=== PATIENT | female | born 1995 | race Caucasian/White ===

== ENCOUNTER 2021-05-10 17:40 | Emergency (ER) | payer BC, SELFPAY ==
[2021-05-10 19:10] VITALS: BP 138/91; PULSE 98; RESP 18; TEMP 36.7; O2SAT 97
--- NOTE | 2021-05-10 19:36 | HMH.EDUTC ---
[facility] Disposition Clinical Impression: Asthma exacerbation, mild URI (upper respiratory infection) Qualifiers: URI type: unspecified URI Qualified Code(s): J06.9 - Acute upper respiratory infection, unspecified Disposition: Home, Self-Care Condition on Discharge: Good Instructions: Sinusitis, DI for Asthma -- Adult, DI for Sinusitis, Budesonide, Budesonide Oral Inhalation Additional Instructions: *Monitor Temp, Over the counter Motrin or Tylenol as directed/as needed Tylenol every 4 hours and Motrin every 6 hours (as long as your family doctor has told you that you can take it) for fever or pa-in. and straight to ER if unable to lower temp less than 101.0 after medication given *Warm salt water gargles may help to soothe the throat *Throat Lozenges *Warm fluids like tea with honey may help to soothe the throat *Sleep elevated *Humidifier/Vaporizer Take medication as prescribed Follow up with OBGYN and Family Doctor if no improvement or any worsening of symptoms Follow up IMMEDIATELY for new or worsening symptoms or no Noticeable improvement over the next 48-72 hours. 911 for difficulty breathing or swallowing You were tested for today for COVID19 your test result should be back in the next 24-48 hours, [facility] to see if your test results are back in the next 48 it may say detected that means your result is positive.You was given handout instructions on how log on and see your results. If you do not have internet access you may call the [facility] for your results [phone] You was given a handout with instructions for Self Quarantine and Self isolation for while you wait on test results and what to do if they are positive If you are positive the Health Dept will be contacting you also Make sure to take your Vitamins Vit. C Vit D and Zinc if you can take them Prescriptions: Budesonide 0.5 mg IH BID PRN #20 each PRN Reason: Shortness Of Breath Transmission Status: Received by [facility] Azithromycin [Z-Rai 250mg Tab] 250 mg PO DIRECTED #6 tab Transmission Status: Received by [facility] Referrals: Jenny Randle APRN [Primary Care Provider] - As needed Forms: Work/School Release Time of Disposition: 19:53 Medical Decision Making - Moiz Inquiry Pt receiving controlled substance: No Moiz was queried for this patient: No Vital Signs: 05/10/21 19:10 05/10/21 19:53 Temperature 98.1 F 98.1 F Temperature Source Oral Pulse Rate 98 H Pulse Rate [Right Brachial] 98 H Respiratory Rate 18 18 Blood Pressure 138/91 H Blood Pressure [Right Arm] 138/91 H Blood Pressure Mean [Right Arm] 106 Blood Pressure Source [Right Arm] Automatic Cuff Blood Pressure Position [Right Arm] Sitting 02 Sat by Pulse Oximetry 97 Oxygen Delivery Method Room Air Orders (Tests/Meds): ORDERS Category Date Time Status Covid-19 Nasal PCR ([facility]) Routine Lab 05/10/21 20:01 Ordered Medical Decision Narrative: Medications azithromycin and budesonide inhaled neb discussed with pharmacy about being baby safe due to patient 10wks ob and medication was dosed per pharmacy [facility] HPI - General Stated complaint: asthma symptoms Time Seen by Provider: 05/10/21 19:36 Mode of Arrival: Ambulatory Source of Information: Patient, Spouse Limitations: No Limitations Description of Symptoms (Recalled from Triage Doc. by RN): PATIENT C/O RECENT CONGESTION AND SOA AT NIGHT. HX OF ASTHMA. STATES SHE IS 10 WEEKS HEENT Symptoms (Recalled from RN notes): No Resp Symptoms (Recalled from RN notes): Yes Skin Symptoms (Recalled from RN notes): No MS Symptoms (Recalled from RN notes): No Functional Status (Recalled from RN notes): WNL - History of Present Illness Provider Complaint: Patient states that she is 10wks OB with history of Asthma States that she thinks she may have a sinus infection that is causing her Asthma to flare up State that she has been using her nebulizer and inhaler but still
[2021-05-10 19:53] VITALS: BP 138/91; PULSE 98; RESP 18; TEMP 36.7; O2SAT 97
== END 2021-05-10 20:10 | disposition home or self-care (01) ==
PROVIDERS: Emergency Provider Nurse Practitioner; PCP Nurse Practitioner
DX: J45.901 Unspecified asthma with (acute) exacerbation (principal); Z3A.10 10 weeks gestation of pregnancy; Z88.0 Allergy status to penicillin
CPT/HCPCS: 99202; G0463; U0003

== ENCOUNTER → 2021-09-16 13:20 | Outpatient (CLI) | payer BC, SELFPAY | PROVIDERS: Visit Provider Nurse Practitioner | DX: Z20.822 Contact with and (suspected) exposure to COVID-19 (principal) | CPT/HCPCS: C9803; U0003; U0005 ==

== ENCOUNTER → 2022-08-02 14:17 | Outpatient (CLI) | payer BC, SELFPAY ==
[2022-08-02 18:14] LABS: Bordetella Pertussis Not Detected (NotDetected); Chlamydophila Pneumoniae, PCR Not Detected (NotDetected); Coronavirus 229E Not Detected (NotDetected); Coronavirus NL63 Not Detected (NotDetected); Coronavirus OC43 Not Detected (NotDetected); Coronovirus HKU1,PCR Not Detected (NotDetected); Human Metapneumovirus Not Detected (NotDetected); Influenza A, PCR Not Detected (NotDetected); Influenza AH1, 2009 Not Detected (NotDetected); Influenza AH1, PCR Not Detected (NotDetected); Influenza AH3,PCR Not Detected (NotDetected); Influenza B, PCR Not Detected (NotDetected); Mycoplasma Pneumoniae, PCR Not Detected (NotDetected); Parainfluenza 1, PCR Not Detected (NotDetected); Parainfluenza 2, PCR Not Detected (NotDetected); Parainfluenza 3, PCR Not Detected (NotDetected); Parainfluenza 4, PCR Not Detected (NotDetected); Respiratory Syncytial Virus Not Detected (NotDetected); Rhinovirus/Enterovirus Not Detected (NotDetected)
[2022-08-03 01:03] LABS: Adenovirus,PCR Detected (NotDetected); Coronavirus 19, PCR Detected (NotDetected)
== END ==
PROVIDERS: PCP Nurse Practitioner; Visit Provider Nurse Practitioner
DX: U07.1 COVID-19 (principal); J06.9 Acute upper respiratory infection, unspecified; B34.0 Adenovirus infection, unspecified
CPT/HCPCS: 87581; 87632; 87798; C9803; U0003; U0005

== ENCOUNTER → 2022-09-29 12:26 | Outpatient (CLI) | payer BC, SELFPAY ==
[2022-09-29 18:21] LABS: Adenovirus,PCR Not Detected (NotDetected); Bordetella Pertussis Not Detected (NotDetected); Chlamydophila Pneumoniae, PCR Not Detected (NotDetected); Coronavirus 19, PCR Not Detected (NotDetected); Coronavirus 229E Not Detected (NotDetected); Coronavirus NL63 Not Detected (NotDetected); Coronavirus OC43 Not Detected (NotDetected); Coronovirus HKU1,PCR Not Detected (NotDetected); Human Metapneumovirus Not Detected (NotDetected); Influenza A, PCR Not Detected (NotDetected); Influenza AH1, 2009 Not Detected (NotDetected); Influenza AH1, PCR Not Detected (NotDetected); Influenza AH3,PCR Not Detected (NotDetected); Influenza B, PCR Not Detected (NotDetected); Mycoplasma Pneumoniae, PCR Not Detected (NotDetected); Parainfluenza 1, PCR Not Detected (NotDetected); Parainfluenza 2, PCR Not Detected (NotDetected); Parainfluenza 3, PCR Not Detected (NotDetected); Parainfluenza 4, PCR Not Detected (NotDetected); Respiratory Syncytial Virus Not Detected (NotDetected); Rhinovirus/Enterovirus Not Detected (NotDetected)
== END ==
PROVIDERS: PCP Nurse Practitioner; Visit Provider Nurse Practitioner
DX: J06.9 Acute upper respiratory infection, unspecified (principal); J45.901 Unspecified asthma with (acute) exacerbation
CPT/HCPCS: 87581; 87632; 87798; C9803; U0003; U0005

== ENCOUNTER → 2022-11-24 11:00 | Outpatient (CLI) | payer BC, SELFPAY ==
[2022-11-24 18:30] LABS: Adenovirus,PCR Not Detected (NotDetected); Bordetella Pertussis Not Detected (NotDetected); Chlamydophila Pneumoniae, PCR Not Detected (NotDetected); Coronavirus 19, PCR Not Detected (NotDetected); Coronavirus 229E Not Detected (NotDetected); Coronavirus NL63 Not Detected (NotDetected); Coronavirus OC43 Not Detected (NotDetected); Coronovirus HKU1,PCR Not Detected (NotDetected); Human Metapneumovirus Not Detected (NotDetected); Influenza A, PCR Not Detected (NotDetected); Influenza AH1, 2009 Not Detected (NotDetected); Influenza AH1, PCR Not Detected (NotDetected); Influenza AH3,PCR Not Detected (NotDetected); Influenza B, PCR Not Detected (NotDetected); Mycoplasma Pneumoniae, PCR Not Detected (NotDetected); Parainfluenza 1, PCR Not Detected (NotDetected); Parainfluenza 2, PCR Not Detected (NotDetected); Parainfluenza 3, PCR Not Detected (NotDetected); Parainfluenza 4, PCR Not Detected (NotDetected); Respiratory Syncytial Virus Not Detected (NotDetected); Rhinovirus/Enterovirus Not Detected (NotDetected)
[2022-11-24 19:06] LABS: Basophils % 0.3 % (0.1-2.0); Eosinophils # 0.3 K/mm3 (0.0-0.4); Eosinophils % 3.4 % (0.1-12.0); Hematocrit 41.2 % (37.0-47.0); Hemoglobin 13.2 g/dL (12.2-16.2); Lymphocytes # 1.9 K/mm3 (0.7-4.5); Lymphocytes % 19.2 % (10-50); Mean Corpuscular HGB Conc 31.9 g/dL (31.8-35.4); Mean Corpuscular Hemoglobin 27.5 pg (27.0-31.2); Mean Corpuscular Volume 86.2 fl (81-99); Mean Platelet Volume 8.8 fl (7.4-10.4); Monocytes # 0.4 K/mm3 (0.1-1.0); Monocytes % 3.9 % (1.7-9.3); Neutrophils # 7.2 K/mm3 (1.8-7.8); Neutrophils % 73.2 % (37.0-80.0); Platelet Count 238 K/mm3 (142-424); Red Blood Count 4.78 M/mm3 (4.20-5.40); White Blood Count 9.9 K/mm3 (4.8-10.8)
== END ==
PROVIDERS: PCP Nurse Practitioner; Visit Provider Nurse Practitioner
DX: J06.9 Acute upper respiratory infection, unspecified (principal); J45.901 Unspecified asthma with (acute) exacerbation
CPT/HCPCS: 85025; 87581; 87632; 87798; C9803; U0003; U0005

== ENCOUNTER → 2023-01-25 23:30 | Outpatient (CLI) | payer BC, SELFPAY ==
[2023-01-25 19:47] LABS: Basophils % 0.4 % (0.1-2.0); Eosinophils # 0.6 K/mm3 (0.0-0.4); Hematocrit 40.3 % (37.0-47.0); Hemoglobin 12.9 g/dL (12.2-16.2); Lymphocytes # 1.2 K/mm3 (0.7-4.5); Lymphocytes % 23.6 % (10-50); Mean Corpuscular Volume 87.5 fl (81-99); Mean Platelet Volume 9.5 fl (7.4-10.4); Monocytes # 0.4 K/mm3 (0.1-1.0); Monocytes % 6.7 % (1.7-9.3); Neutrophils % 58.3 % (37.0-80.0); Platelet Count 202 K/mm3 (142-424); Red Cell Distribution Width 13.8 % (11.5-17.5); White Blood Count 5.2 K/mm3 (4.8-10.8)
[2023-01-25 20:11] LABS: Alanine Aminotransferase 14 U/L (12-78); Albumin Level 4.1 g/dl (3.5-5.0); Albumin/Globulin Ratio 1.5 (1.1-1.8); Alkaline Phosphatase 152 U/L (38-126); Anion Gap 17.3 mEq/L (5-15); Aspartate Amino Transferase 22 U/L (14-36); Bilirubin,Total 0.4 mg/dl (0.2-1.3); Blood Urea Nitrogen 9 mg/dl (7-17); Calcium 8.7 mg/dl (8.4-10.2); Carbon Dioxide 26 mmol/L (22.0-30.0); Chloride 100 mmol/L (98-107); Chol/HDL Ratio 4.4 (1-3.5); Cholesterol 184 mg/dl (140-200); Estimated Glomerular Filt Rate 118 ml/min (>60); GFR (African American) 143 ML/MIN (>60); Globulin 2.7 g/dL (1.3-3.2); Glucose 94 mg/dl (74-100); HDL Cholesterol 42 mg/dl (40-60); Potassium 4.3 mmoL/L (3.5-5.1); Sodium 139 mmol/L (136-145); Total Protein,Serum 6.8 g/dl (6.3-8.2); Triglycerides 176 mg/dl (30-150); VLDL Cholesterol 35 mg/dL (0-40)
[2023-01-25 20:21] LABS: Direct LDL Cholesterol 111.69 mg/dL (100-129)
[2023-01-25 20:27] LABS: 25-OH Vitamin D, Total 26.1 ng/mL (30-100)
[2023-01-25 20:42] LABS: Thyroid Stimulating Hormone 1.03 uIU/mL (0.465-4.68)
[2023-01-25 21:01] LABS: Vitamin B12 208 pg/mL (239-931)
[2023-01-25 21:34] LABS: Hemoglobin A1C 4.9 % (4.0-6.0)
== END ==
LOC: LAB.DROPOF 23:30
PROVIDERS: PCP Nurse Practitioner; Visit Provider Nurse Practitioner
DX: J06.9 Acute upper respiratory infection, unspecified; J45.901 Unspecified asthma with (acute) exacerbation; Z13.1 Encounter for screening for diabetes mellitus; Z13.220 Encounter for screening for lipoid disorders; Z13.29 Encounter for screening for other suspected endocrine disorder; Z79.899 Other long term (current) drug therapy; Z00.00 Encounter for general adult medical examination without abnormal findings; E55.9 Vitamin D deficiency, unspecified; E53.8 Deficiency of other specified B group vitamins
CPT/HCPCS: 80053; 80061; 82306; 82607; 83036; 84443; 85025; 87635; C9803; U0003; U0005

== ENCOUNTER 2023-10-24 19:55 | Outpatient (CLI) | payer BC, SELFPAY ==
[2023-10-24 18:12] LABS: Adenovirus,PCR Not Detected (NotDetected); Coronavirus 19, PCR Not Detected (NotDetected); Coronavirus 229E Not Detected (NotDetected); Coronavirus NL63 Not Detected (NotDetected); Coronavirus OC43 Not Detected (NotDetected); Coronovirus HKU1,PCR Not Detected (NotDetected); Human Metapneumovirus Not Detected (NotDetected); Influenza A, PCR Not Detected (NotDetected); Influenza AH1, 2009 Not Detected (NotDetected); Influenza AH1, PCR Not Detected (NotDetected); Influenza AH3,PCR Not Detected (NotDetected); Influenza B, PCR Not Detected (NotDetected); Parainfluenza 1, PCR Not Detected (NotDetected); Parainfluenza 2, PCR Not Detected (NotDetected); Parainfluenza 3, PCR Not Detected (NotDetected); Parainfluenza 4, PCR Not Detected (NotDetected); Respiratory Syncytial Virus Not Detected (NotDetected); Rhinovirus/Enterovirus Not Detected (NotDetected)
== END 2023-10-24 23:59 ==
LOC: LAB.DROPOF 19:56
PROVIDERS: PCP Nurse Practitioner; Visit Provider Nurse Practitioner
DX: J45.901 Unspecified asthma with (acute) exacerbation (principal); R09.81 Nasal congestion; R09.89 Other specified symptoms and signs involving the circulatory and respiratory systems; J02.9 Acute pharyngitis, unspecified; R05.8 Other specified cough
CPT/HCPCS: 87632; 87635

== ENCOUNTER 2023-10-27 10:10 | Outpatient (CLI) | payer BC, SELFPAY ==
[2023-10-27 10:25] LABS: Basophils # 0.1 K/mm3 (0-0.2); Basophils % 0.6 % (0.1-2.0); Eosinophils # 0.1 K/mm3 (0.0-0.4); Eosinophils % 0.5 % (0.1-12.0); Hematocrit 39.2 % (37.0-47.0); Hemoglobin 13.2 g/dL (12.2-16.2); Lymphocytes # 2.4 K/mm3 (0.7-4.5); Mean Corpuscular HGB Conc 33.8 g/dL (31.8-35.4); Mean Corpuscular Hemoglobin 28.4 pg (27.0-31.2); Mean Corpuscular Volume 83.9 fl (81-99); Mean Platelet Volume 8.2 fl (7.4-10.4); Monocytes # 0.4 K/mm3 (0.1-1.0); Monocytes % 4.5 % (1.7-9.3); Neutrophils % 70.5 % (37.0-80.0); Platelet Count 238 K/mm3 (142-424); Red Blood Count 4.67 M/mm3 (4.20-5.40); Red Cell Distribution Width 14.1 % (11.5-17.5); White Blood Count 9.9 K/mm3 (4.8-10.8)
[2023-10-27 10:45] LABS: Hemoglobin A1C 5.1 % (4.0-6.0)
[2023-10-27 11:01] LABS: Alanine Aminotransferase 20 U/L (12-78); Albumin Level 4.1 g/dl (3.5-5.0); Albumin/Globulin Ratio 1.4 (1.1-1.8); Alkaline Phosphatase 125 U/L (38-126); Aspartate Amino Transferase 19 U/L (14-36); Bilirubin,Total 0.3 mg/dl (0.2-1.3); Blood Urea Nitrogen 11 mg/dl (7-17); Carbon Dioxide 31 mmol/L (22.0-30.0); Chloride 105 mmol/L (98-107); Chol/HDL Ratio 4.9 (1-3.5); Cholesterol 225 mg/dl (140-200); Estimated Glomerular Filt Rate 117 ml/min (>60); GFR (African American) 142 ML/MIN (>60); Globulin 2.9 g/dL (1.3-3.2); Glucose 96 mg/dl (74-100); HDL Cholesterol 46 mg/dl (40-60); Sodium 142 mmol/L (136-145); Triglycerides 207 mg/dl (30-150); VLDL Cholesterol 41 mg/dL (0-40)
[2023-10-27 11:12] LABS: Direct LDL Cholesterol 126.14 mg/dL (100-129)
[2023-10-27 11:17] LABS: 25-OH Vitamin D, Total 14.4 ng/mL (30-100)
[2023-10-27 11:31] LABS: Thyroid Stimulating Hormone 0.74 uIU/mL (0.465-4.68)
[2023-10-27 11:51] LABS: Vitamin B12 326 pg/mL (239-931)
== END 2023-10-27 23:59 ==
PROVIDERS: PCP Nurse Practitioner; Visit Provider Nurse Practitioner
DX: E55.9 Vitamin D deficiency, unspecified (principal); E66.9 Obesity, unspecified; Z68.35 Body mass index [BMI] 35.0-35.9, adult; Z79.899 Other long term (current) drug therapy
CPT/HCPCS: 36415; 80053; 80061; 82306; 82607; 83036; 84443; 85025

== ENCOUNTER 2024-02-23 09:59 | Emergency (ER) | payer BC, SELFPAY ==
[2024-02-23 10:00] VITALS: BP 166/89; PULSE 99; RESP 18; TEMP 36.8; O2SAT 100; BMI 35.9
--- NOTE | 2024-02-23 10:01 | ED_ITS ---
Discharge Plan Disposition Patient Disposition: Home, Self-Care Condition: Good Prescriptions Prescriptions: New amitriptyline 25 mg tablet 25 mg PO HS Qty: 30 0RF Ubrelvy 100 mg tablet 100 mg PO ONCE PRN (Reason: headache) Qty: 16 0RF No Action Dupixent Syringe 300 mg/2 mL syringe 300 mg SQ Q2W fluticasone propionate 50 mcg/actuation spray,suspension 1 spray intranasal DAILY Qty: 16 2RF Rx Instructions: administer into each nostril fluticasone furoate-vilanterol [Breo Ellipta] 100-25 mcg/dose blister with device 1 inh INHALATION DAILY Qty: 60 5RF Zepbound 2.5 mg/0.5 mL pen injector 2.5 mg SQ WEEKLY 28 Days Qty: 2 0RF cefdinir 300 mg capsule 300 mg PO BID Qty: 20 0RF prednisone 20 mg tablet 20 mg PO .COMPLEX Qty: 15 0RF Rx Instructions: 20 mg orally BID x 5 days then daily x 5 days cetirizine 10 mg tablet 10 mg PO DAILY Qty: 90 1RF montelukast 10 mg tablet 10 mg PO DAILY Qty: 90 1RF cholecalciferol (vitamin D3) 125 mcg (5,000 unit) tablet 125 mcg PO DAILY Qty: 30 5RF cyanocobalamin (vitamin B-12) 1,000 mcg tablet 1,000 mcg PO DAILY Qty: 30 5RF Zafemy 150-35 mcg/24 hr patch weekly See Rx Instructions .ROUTE .COMPLEX Qty: 3 2RF Dose Instruction: Apply 1 Patch transdermally every 7 days. Apply once weekly for 3 weeks of a 4 week cycle Rx Instructions: Apply 1 Patch transdermally every 7 days. Apply once weekly for 3 weeks of a 4 week cycle albuterol sulfate 2.5 mg /3 mL (0.083 %) solution for nebulization 2.5 mg inhalation Q6H Qty: 360 5RF cholecalciferol (vitamin D3) 1,250 mcg (50,000 unit) capsule 1,250 mcg PO WEEKLY Qty: 8 0RF omeprazole 40 mg capsule,delayed release(DR/EC) 40 mg PO DAILY Qty: 30 2RF fluconazole 150 mg tablet 150 mg PO WEEKLY Qty: 2 1RF Referrals Follow up/Referrals: Jenny Randle APRN [Primary Care Provider] - See instructions Activity Restrictions/Add. Instructions Additional Instructions/Restrictions: Follow up with Jenny to review labs Restart B12 Trial amitriptyline at night for headache prevention and Ubrelvy as needed to get rid of headaches once they are present Clinical Impressions Clinical Impression: Chronic headache Instructions Patient Instructions: DI for Headache Discharge ED Provider: Cecilia Stone [facility] HPI General Stated complaint: frequent headaches Time Seen by Provider: 02/23/24 10:54 History of Present Illness Provider Complaint: Frequent headaches. Saw PCP approximately one month ago. She was given antibiotics, steroids. No real improvement. Hurts behind eyes, across bridge of nose. Onset (ago): month(s) (1) Location: head Consistency: constant Relieving factors: none Exacerbating factors: none Associated symptoms: headaches Treatments prior to arrival: other (antibiotics steroiids) Related Data Home Medications Medication Instructions Recorded Confirmed dupilumab 300 mg/2 mL subcutaneous 300 mg SQ Q2W 08/02/22 01/24/24 syringe (Dupixent) Previous Rx's Medication Instructions Recorded fluticasone furoate 100 1 inh inhalation DAILY #60 ea 11/24/22 mcg-vilanterol 25 mcg/dose inhalation powder (Breo Ellipta) fluticasone propionate 50 1 spray intranasal DAILY #16 grams 11/24/22 mcg/actuation nasal spray,suspension cholecalciferol (vitamin D3) 125 125 mcg PO DAILY #30 tabs 01/26/23 mcg (5,000 unit) tablet cyanocobalamin (vitamin B-12) 1,000 mcg PO DAILY #30 tabs 01/26/23 1,000 mcg tablet norelgestromin 150 mcg-e.estradiol See Rx Instructions .Route 01/26/23 35 mcg/24 hr weekly transderm .COMPLEX #3 patches patch (Zafemy) albuterol sulfate 2.5 mg/3 mL 2.5 mg (3 mL) inhalation Q6H #360 09/28/23 (0.083 %) solution for nebulization mL tirzepatide (weight loss) 2.5 2.5 mg (0.5 mL) SQ WEEKLY 4 weeks 10/24/23 mg/0.5 mL subcutaneous pen #2 mL injector (Zepbound) cholecalciferol (vitamin D3) 1,250 1,250 mcg PO WEEKLY #8 caps 11/03/23 mcg (50,000 unit) capsule omeprazole 40 mg capsule,delayed 40 mg PO DAILY #30 caps 11/03/23 release fluconazole 150 mg tablet 150 mg PO WEEKLY #2 tabs 11/20/23 cefdinir 300 mg capsule 300 mg PO BID #20 caps 01/24/24 cetirizine 10 mg tablet 10 mg PO DAILY #90 tabs 01/24/24 montelukast 10 mg tablet 10 mg PO DAILY #90 tabs 01/24/24 prednisone 20 mg tablet 20 mg PO .COMPLEX #15 tabs 01/24/24 amitriptyline 25 mg tablet 25 mg PO HS #30 tabs 02/23/24 ubrogepant 100 mg tablet (Ubrelvy) 100 mg PO ONCE PRN headache #16 02/23/24 tabs Allergies Allergy/AdvReac Type Severity Reaction Status Date / Time Penicillins Allergy Verified 02/23/24 10:39 [facility] Disclaimer: The information contained in this section may have been updated after the patient was seen, as this information can be updated by other users. Medical History (Updated 02/23/24 @ 11:01 by TIFFANIE Cadena) Allergic rhinitis Vitamin B12 deficiency Vitamin D deficiency GERD (gastroesophageal reflux disease) Hyperlipidemia Obesity Asthma exacerbation, mild Family History Other Cancer Diabetes Social History Smoking Status: Never smoker alcohol intake: former substance use type: denies use current occupational status: employed Travel in the last 8 weeks: None household members: family housing: house ROS Obtained: Yes All systems reviewed & no additional complaints except as documented Constitutional Constitutional: Reports headache(s) ENT Ears, Nose, Mouth, and Throat: Reports headache(s) Neurologic Neurologic: Reports headache(s) Physical Exam General General appearance: alert and in no apparent distress Head Head exam: atraumatic, normocephalic and normal inspection Eye Eye exam: Present normal appearance, PERRL and EOMI ENT ENT exam: Present normal exam, normal oropharynx, mucous membranes moist, TM's normal bilaterally and normal external ear exam Respiratory Respiratory exam: Present normal lung sounds bilaterally; Absent respiratory distress Cardiovascular Cardiovascular exam: Present regular rate and normal rhythm; Absent JVD Extremities Exam Extremities exam: Present normal inspection, full ROM and normal capillary refill; Absent calf tenderness Neurological Exam Neurological exam: Present alert and oriented X3 Psychiatric Psychiatric exam: Present normal affect and normal mood Skin Skin exam: Present warm, dry, intact and normal color Lymphatic Lymphatic Findings: no adenopathy Medical Decision Making Moiz Inquiry Pt receiving controlled substance: No Lab Data Lab results reviewed: Yes I reviewed the patient's lab results.
--- NOTE | 2024-02-23 10:49 | PC.NURSE ---
Sent blood up at 10:49
[2024-02-23 11:09] LABS: Basophils % 0.8 % (0.1-2.0); Eosinophils # 0.1 K/mm3 (0.0-0.4); Eosinophils % 1.8 % (0.1-12.0); Hematocrit 40.1 % (37.0-47.0); Hemoglobin 12.7 g/dL (12.2-16.2); Lymphocytes # 1.5 K/mm3 (0.7-4.5); Mean Corpuscular HGB Conc 31.6 g/dL (31.8-35.4); Mean Corpuscular Hemoglobin 27.4 pg (27.0-31.2); Mean Corpuscular Volume 86.5 fl (81-99); Mean Platelet Volume 8.3 fl (7.4-10.4); Monocytes # 0.2 K/mm3 (0.1-1.0); Monocytes % 4.9 % (1.7-9.3); Neutrophils # 2.8 K/mm3 (1.8-7.8); Neutrophils % 59.6 % (37.0-80.0); Platelet Count 227 K/mm3 (142-424); Red Blood Count 4.63 M/mm3 (4.20-5.40); Red Cell Distribution Width 14.7 % (11.5-17.5); White Blood Count 4.7 K/mm3 (4.8-10.8)
[2024-02-23 11:19] VITALS: BP 166/89; PULSE 99; RESP 18; TEMP 36.8; O2SAT 100
[2024-02-23 11:43] LABS: Chloride 106 mmol/L (98-107); Sodium 138 mmol/L (136-145)
[2024-02-23 11:44] LABS: Potassium 3.6 mmoL/L (3.5-5.1)
[2024-02-23 13:07] LABS: Alanine Aminotransferase 25 U/L (12-78); Albumin Level 4.3 g/dl (3.5-5.0); Albumin/Globulin Ratio 1.5 (1.1-1.8); Alkaline Phosphatase 102 U/L (38-126); Anion Gap 10.6 mEq/L (5-15); Aspartate Amino Transferase 29 U/L (14-36); Bilirubin,Total 0.6 mg/dl (0.2-1.3); Blood Urea Nitrogen 11 mg/dl (7-17); Carbon Dioxide 25 mmol/L (22.0-30.0); Creatinine Clearance Estimated 160 mL/min (50-200); Estimated Glomerular Filt Rate 98 ml/min (>60); GFR (African American) 119 ML/MIN (>60); Globulin 2.9 g/dL (1.3-3.2); Glucose 146 mg/dl (74-100); Total Protein,Serum 7.2 g/dl (6.3-8.2)
[2024-02-23 13:57] LABS: Vitamin B12 274 pg/mL (239-931)
[2024-03-05 19:09] LABS: 1,25 Dihydroxy Vitamin D 76 pg/mL (.); 1,25-Dihydroxy, Vitamin D-2 <10 pg/mL (.); 1,25-Dihydroxy, Vitamin D-3 76 pg/mL (.)
== END 2024-02-23 11:19 | disposition home or self-care (01) ==
PROVIDERS: Emergency Provider Physician Assistant; PCP Nurse Practitioner
DX: G44.89 Other headache syndrome (principal)
CPT/HCPCS: 80053; 82607; 82652; 84443; 85025; 99212; 99214; G0463

== ENCOUNTER 2024-03-11 10:09 | Outpatient (CLI) | payer BC, SELFPAY ==
[2024-03-11 18:49] LABS: Basophils # 0.1 K/mm3 (0-0.2); Basophils % 0.7 % (0.1-2.0); Eosinophils # 0.1 K/mm3 (0.0-0.4); Eosinophils % 1.3 % (0.1-12.0); Hematocrit 39.1 % (37.0-47.0); Hemoglobin 12.9 g/dL (12.2-16.2); Lymphocytes # 2.1 K/mm3 (0.7-4.5); Lymphocytes % 25.4 % (10-50); Mean Corpuscular Hemoglobin 28.1 pg (27.0-31.2); Mean Corpuscular Volume 85.1 fl (81-99); Mean Platelet Volume 8.5 fl (7.4-10.4); Monocytes # 0.3 K/mm3 (0.1-1.0); Monocytes % 4.1 % (1.7-9.3); Neutrophils # 5.7 K/mm3 (1.8-7.8); Neutrophils % 68.5 % (37.0-80.0); Platelet Count 211 K/mm3 (142-424); Red Cell Distribution Width 14.6 % (11.5-17.5); White Blood Count 8.3 K/mm3 (4.8-10.8)
[2024-03-11 18:57] LABS: Alanine Aminotransferase 22 U/L (12-78); Albumin Level 4.4 g/dl (3.5-5.0); Albumin/Globulin Ratio 1.4 (1.1-1.8); Alkaline Phosphatase 139 U/L (38-126); Anion Gap 14.1 mEq/L (5-15); Aspartate Amino Transferase 25 U/L (14-36); Bilirubin,Total 0.4 mg/dl (0.2-1.3); Blood Urea Nitrogen 8 mg/dl (7-17); Calcium 9.9 mg/dl (8.4-10.2); Carbon Dioxide 27 mmol/L (22.0-30.0); Chloride 103 mmol/L (98-107); Estimated Glomerular Filt Rate 98 ml/min (>60); GFR (African American) 119 ML/MIN (>60); Globulin 3.1 g/dL (1.3-3.2); Glucose 95 mg/dl (74-100); Potassium 4.1 mmoL/L (3.5-5.1); Sodium 140 mmol/L (136-145); Total Protein,Serum 7.5 g/dl (6.3-8.2)
[2024-03-11 19:28] LABS: Thyroid Stimulating Hormone 1.97 uIU/mL (0.465-4.68)
[2024-03-11 21:22] LABS: Hemoglobin A1C 5.1 % (4.0-6.0)
== END 2024-03-11 23:59 | disposition home or self-care (01) ==
LOC: LAB.DROPOF 03-12 10:10
PROVIDERS: PCP Nurse Practitioner; Visit Provider Nurse Practitioner
DX: I10 Essential (primary) hypertension (principal)
CPT/HCPCS: 80050; 80053; 83036; 84443; 85025

== ENCOUNTER 2024-03-19 16:28 | Outpatient (CLI) | payer BC, SELFPAY ==
--- NOTE | 2024-03-19 16:28 | MR_ITS ---
FINAL REPORT CLINICAL HISTORY: new daily persistent headache FINDINGS: Multiplanar MR imaging of the brain was performed without and with contrast. There is no evidence of intracranial hemorrhage or mass. No abnormal extra-axial fluid collection is seen. The ventricular size is within normal limits. There is no evidence of shift of the midline structures. The posterior fossa and brainstem have an unremarkable appearance. No area of abnormal restricted diffusion is identified. No abnormal contrast enhancement is seen. Normal major vessel vascular flow voids are noted. Lobular mucosal thickening is seen in the floors of the maxillary sinuses. IMPRESSION: No acute intracranial abnormality identified. Mucosal thickening in the floors of the maxillary sinuses. Authenticated and ERN
[2024-03-19] MEDS: SODIUM CHLORIDE 0.9% 10ML SYR (RAD ONLY) 10 ML IV (17:36)
[2024-03-19] MEDS: GADOTERIDOL INJ 20ML SYRINGE 17 ML IV (17:36)
== END 2024-03-19 23:59 | disposition home or self-care (01) ==
LOC: RAD 16:28
PROVIDERS: PCP Nurse Practitioner; Visit Provider Nurse Practitioner
DX: G44.52 New daily persistent headache (NDPH) (principal)
CPT/HCPCS: 70553; A9576

== ENCOUNTER 2024-07-15 18:10 | Outpatient (CLI) | payer BC, SELFPAY ==
[2024-07-15 18:19] LABS: Adenovirus,PCR Not Detected (NotDetected); Bordetella Pertussis Not Detected (NotDetected); Chlamydophila Pneumoniae, PCR Not Detected (NotDetected); Coronavirus 19, PCR Not Detected (NotDetected); Coronavirus 229E Not Detected (NotDetected); Coronavirus NL63 Not Detected (NotDetected); Coronavirus OC43 Not Detected (NotDetected); Coronovirus HKU1,PCR Not Detected (NotDetected); Human Metapneumovirus Not Detected (NotDetected); Influenza A, PCR Not Detected (NotDetected); Influenza AH1, 2009 Not Detected (NotDetected); Influenza AH1, PCR Not Detected (NotDetected); Influenza AH3,PCR Not Detected (NotDetected); Influenza B, PCR Not Detected (NotDetected); Mycoplasma Pneumoniae, PCR Not Detected (NotDetected); Parainfluenza 1, PCR Not Detected (NotDetected); Parainfluenza 2, PCR Not Detected (NotDetected); Parainfluenza 3, PCR Not Detected (NotDetected); Parainfluenza 4, PCR Not Detected (NotDetected); Respiratory Syncytial Virus Not Detected (NotDetected)
[2024-07-16 21:29] LABS: Rhinovirus/Enterovirus Detected (NotDetected)
== END 2024-07-15 23:59 | disposition home or self-care (01) ==
PROVIDERS: PCP Nurse Practitioner; Visit Provider Nurse Practitioner
DX: J18.9 Pneumonia, unspecified organism (principal); J02.9 Acute pharyngitis, unspecified
CPT/HCPCS: 87265; 87486; 87581; 87632; 87635

== ENCOUNTER 2024-07-16 18:36 | Outpatient (CLI) | payer BC, SELFPAY ==
--- NOTE | 2024-07-16 18:42 | XR_ITS ---
PROCEDURE INFORMATION: Exam: XR Chest Exam date and time: 07/16/2024 6:33 PM Age: 28 years old Clinical indication: Cough TECHNIQUE: Imaging protocol: Radiologic exam of the chest. Views: 2 views. COMPARISON: No relevant prior studies available. FINDINGS: Lungs: Clear lungs. Pleural spaces: No pneumothorax. No sizable pleural effusion. Heart/Mediastinum: No cardiomegaly. Bones/joints: Unremarkable. IMPRESSION: Clear lungs.
== END 2024-07-16 23:59 | disposition home or self-care (01) ==
LOC: RAD 18:38
PROVIDERS: PCP Nurse Practitioner; Visit Provider Nurse Practitioner
DX: J18.9 Pneumonia, unspecified organism (principal)
CPT/HCPCS: 71046

== ENCOUNTER 2024-10-21 09:57 | Outpatient (CLI) | payer BC, SELFPAY ==
[2024-10-21 18:41] LABS: Basophils % 0.3 % (0.1-2.0); Eosinophils # 0.2 K/mm3 (0.0-0.4); Eosinophils % 2.7 % (0.1-12.0); Hemoglobin 12.5 g/dL (12.2-16.2); Lymphocytes # 1.9 K/mm3 (0.7-4.5); Lymphocytes % 32.6 % (10-50); Mean Corpuscular HGB Conc 32.1 g/dL (31.8-35.4); Mean Corpuscular Hemoglobin 27.3 pg (27.0-31.2); Mean Corpuscular Volume 85.2 fl (81-99); Mean Platelet Volume 10.9 fl (7.4-10.4); Monocytes # 0.4 K/mm3 (0.1-1.0); Monocytes % 6.8 % (1.7-9.3); Neutrophils # 3.4 K/mm3 (1.8-7.8); Neutrophils % 57.1 % (37.0-80.0); Platelet Count 183 K/mm3 (142-424); Red Blood Count 4.58 M/mm3 (4.20-5.40); Red Cell Distribution Width 13.3 % (11.5-17.5); White Blood Count 5.9 K/mm3 (4.8-10.8)
[2024-10-21 18:57] LABS: Alanine Aminotransferase 24 U/L (12-78); Albumin Level 4.6 g/dl (3.5-5.0); Albumin/Globulin Ratio 1.8 (1.1-1.8); Alkaline Phosphatase 128 U/L (38-126); Anion Gap 14.3 mEq/L (5-15); Aspartate Amino Transferase 26 U/L (14-36); Bilirubin,Total 0.5 mg/dl (0.2-1.3); Blood Urea Nitrogen 12 mg/dl (7-17); Calcium 9.3 mg/dl (8.4-10.2); Carbon Dioxide 27 mmol/L (22.0-30.0); Chloride 102 mmol/L (98-107); Chol/HDL Ratio 5.2 (1-3.5); Cholesterol 215 mg/dl (140-200); Estimated Glomerular Filt Rate 98 ml/min (>60); GFR (African American) 118 ML/MIN (>60); Globulin 2.5 g/dL (1.3-3.2); Glucose 92 mg/dl (74-100); HDL Cholesterol 41 mg/dl (40-60); Potassium 4.3 mmoL/L (3.5-5.1); Sodium 139 mmol/L (136-145); Total Protein,Serum 7.1 g/dl (6.3-8.2); Triglycerides 193 mg/dl (30-150); VLDL Cholesterol 39 mg/dL (0-40)
[2024-10-21 19:08] LABS: Direct LDL Cholesterol 121.36 mg/dL (100-129)
[2024-10-21 19:15] LABS: 25-OH Vitamin D, Total 23.6 ng/mL (30-100)
[2024-10-21 19:28] LABS: Thyroid Stimulating Hormone 2.28 uIU/mL (0.465-4.68)
[2024-10-21 19:40] LABS: Microalbumin/Creatinine Ratio 9.6
[2024-10-21 19:42] LABS: Creatinine,Urine Random 153 mg/dL (Not Estab.)
[2024-10-21 19:47] LABS: Vitamin B12 347 pg/mL (239-931)
[2024-10-21 20:51] LABS: HIV Combo NEGATIVE (Negative)
[2024-10-21 20:59] LABS: Hepatitis C Ab Qual. W/ RFX NEGATIVE (Negative)
== END 2024-10-21 23:59 | disposition home or self-care (01) ==
LOC: LAB.DROPOF 10-22 08:45
PROVIDERS: PCP Nurse Practitioner; Visit Provider Nurse Practitioner
DX: I10 Essential (primary) hypertension (principal); E78.5 Hyperlipidemia, unspecified; E55.9 Vitamin D deficiency, unspecified; E53.8 Deficiency of other specified B group vitamins; E66.9 Obesity, unspecified; Z13.0 Encounter for screening for diseases of the blood and blood-forming organs and certain disorders involving the immune mechanism; Z68.37 Body mass index [BMI] 37.0-37.9, adult
CPT/HCPCS: 80053; 80061; 82043; 82306; 82570; 82607; 83036; 84443; 85025; 86803; 87389

== ENCOUNTER 2025-01-06 10:34 | Outpatient (CLI) | payer BC, SELFPAY ==
[2025-01-06 19:55] LABS: HCG,Quantitative < 2 mIU/ml (0-5.42)
--- OUTSIDE RECORDS SUMMARY | 2025-01-07 10:42 | XMS_ITS | Data Portability ---
Author Organization [facility] Address [address] [place] [address] Care Team Providers Care Flag Football Coach Name Role Phone TOBI KERR Real Estate Administrative Assistant Assessment No assessment recorded. Plan of Treatment Reminders Order Date Submit Date Provider Last Modified By Organization Details Last Modified Time Details Appointments None recorded. Lab None recorded. Referral None recorded. Procedures None recorded. Surgeries None recorded. Imaging None recorded. Medication Orders Dupixent 300 mg/2 mL subcutaneo us pen injector 2023 024 [employer] [facility], [facility] (Id), [address] [place] [address], [address], [phone], 4 14:15:13 Dupixent 300 mg/2 mL subcutaneo us pen injector 2023 024 [employer] [facility], [facility] (Id), [address] [place], [place] [address]ke [facility], [address], [place], [place], [phone], 4 17:24:18 Dupixent 300 mg/2 mL subcutaneo us pen injector 2023 024 [employer] [facility], [facility] (Id), [address] [facility], [address], [place], [place], [phone], 4 17:24:18 Patient TargetsNo targets recorded. Patient InstructionsNo instructions recorded. Reason for Referral None Reported. Medical Equipment None Reported. Allergies Allergen ID Allergen Name Allergen Category Reaction Reaction Severity Criticality Documentation Date Start Date Code Code System Note Provider Name and Address Organization Details Recorded Time 345804 Product containin g penicilli n (product) medicatio n Not available Not available Not available 09/29/2023 41750 8001 SNOMED Linda Loredo [facility] 15:59:23 Medications Name Sig Start Date Stop Date Status Note LastModified by Organization Details LastModified Time Vitamin D active Not Available Not Altagracia ilable Not Available montelukast active Not Available Not A vailable Not Available lisinopril active Not Available Not Av ailable Not Available cetirizine active Not Available Not Av ailable Not Available Dupixent 300 mg/2 mL subcutaneous pen injector Inject 2 mL every 2 weeks by subcutaneou s route. 2023 active Not Available Not Available Not Avai lable albuterol 90 mcg-budesoni de 80 mcg/actuatio n HFA aerosol inhaler Inhale by inhalation route. active Not Available Not Available No t Available Vitals None Recorded Social History Question Answer Notes LastModified by Organizat ion Details LastModified Time Tobacco Smoking Status Never Smoker Linda Loredo [facility] 09/29/2023 16:00:18 What Is Your Level Of Alcohol Consumption? None [email or web address] Information not available 09/29/2023 Sunscreen Use? Yes [email or web address] Informatio n not available 07/27/2024 Tanning Bed Use No [email or web address] Informati on not available 07/27/2024 Are You Or Trying To Become ? No [email or web address] Information not available 07/27/2024 Are You On Control? No [email or web address] Information not available 07/27/2024 Are You ? No [email or web address] Information not available 07/27/2024 What Was The Date Of Your Most Recent Tobacco Screening? 07/27/2024 [email or web address] Information not available 07/27/2024 Sex: Unknown Functional Status None recorded. Mental Status None recorded. Family History Nothing Reported. Medical History No medical history recorded. Gynecological HistoryNo gynecological history recorded. Obstetrics History GPAL:G 0 P 0 0 0 0 Past Encounters Encounter ID Performer Location Encounter Start Date Encounter Closed Date Diagnosis/Indication Diagnosis SNOMED-CT Code Diagnosis ICD10 Code Diagnosis Note [id number] TOBI SHIPLEY MD [address] [address] 09/29/2023 15:45:14 09/29/2023 16:23:00 Eczema 35759712 L20.89 The nature of the diagnosis was explainedE ASI 21.2had been responding to Dupixent but ran out.dry skin care discussedd upixent samples given to pt today.pt used ceravewill prescribe rx dupixent 300 mg one injection every 2 week.rec. dilute bleach baths [id number] TOBI SHIPLEY MD [address] [address] 07/27/2024 12:40:12 07/27/2024 13:12:04 Eczema 17561945 L20.89 The nature of the diagnosis was explainedE ASI 21.2 before dupixent. now controlled .had been responding to Dupixent but ran out last month - due nowdry skin care discussedd upixent samples given to pt today.pt used ceravewill prescribe rx dupixent 300 mg one injection every 2 week.rec. dilute bleach baths Health Concerns Section Related Observation LastModified by Organization Detai ls LastModified Time None Recorded Concern Status LastModified by Organization Details LastModified Time None Recorded Advance Directives Directive None Recorded Payers Encounter Date Sequence Insurance Name Policy Number Policy Winn Covered Member ID Winn Member ID Guarantor Name 09/29/2023 1 [employer] ([place] [id number] [id number] Musa 07/27/2024 1 [employer] [place] [id number] [facility] [id number] [facility] Notes Date Note Type Note Provider Name and Address Organization Details Recorded Time 09/29/2023 text/html 1. Follow up : atopic dermatitis - widespreadDuratio n: 6 months f/uPrior tx: dupixentReports: I can tell i haven't taken my shot in 2 months - dry and itchy TOBI SHIPLEY MD [address] [place], [address], [facility] 09/29/2023 17:54:30 07/27/2024 text/html atopic on dupixent last seen Sep 2023 I am here to follow up on my eczema , I use dupixent and I need refills. doing well w shots. TOBI SHIPLEY MD [address] [place], [address], [facility] 07/27/2024 13:36:46 OBGyn Episode No OBEpisode recorded.
== END 2025-01-06 23:59 | disposition home or self-care (01) ==
LOC: LAB.DROPOF 01-07 10:40
PROVIDERS: PCP Nurse Practitioner; Visit Provider Nurse Practitioner
DX: N91.2 Amenorrhea, unspecified (principal)
CPT/HCPCS: 84702

== ENCOUNTER 2025-05-21 16:27 | Outpatient (CLI) | payer BC, SELFPAY ==
--- OUTSIDE RECORDS SUMMARY | 2018-03-02 11:15 | XMS_ITS | Encounter Summary ---
Author Organization [place] Address [address] [facility] [address] Care Team Providers Care Polisher Sand Name Role Phone Kimberli Kwon BRE Primary Care Provider [phone] Encounter Details Date Type Department Care Team (Late st Contact Info) Description 03/02/2018 11:15 AM EDT Hospital Encounter EDG OB PREADM NURSE [facility] [place] [address] Social History Tobacco Use Types Packs/Day Years Used Date Smoking Tobacco: Never Smokeless Tobacco: Never Alcohol Use Standard Drinks/Week Comments Yes 0 (1 standard drink = 0.6 oz pur e alcohol) quit with PHQ-2 Answer Date Recorded PHQ-2 Total Score 0 12/01/2021 Sexually Active Control Partners Comments Yes Male not preventing Comments No Sex and Gender Information Value Date Recorded Sex Assigned at Not on file Legal Sex Female 3:24 AM EDT Gender Identity Not on file Sexual Orientation Not on file COVID-19 Exposure Response Date Recorded In the last month, have you been in contact with someone who was confirmed or suspected to have Coronavirus / COVID-19? No / Unsure 11/27/2021 1:28 PM EDT documented as of this encounter Functional Status * Cognitive and Functional Status Question Answer Date of Assessment Author Is the person deaf or does he/she have serious difficulty hearing? No 04/18/2018 7:06 PM EDT Dane Jimenez RN Is the person blind or does he/she have serious difficulty seeing even when wearing glasses? No 04/18/2018 7:06 PM EDT Dane Jimenez RN Does this person have seriou s difficulty walking or climbing stairs? No 04/18/2018 7:06 PM EDT Dane Jimenez RN Does this person have diffic ulty dressing or bathing? No 04/18/2018 7:06 PM LEILAT Dane Jimenez RN * Alcohol Screening Score Answer Date of Assessment Author 0 12/01/2021 7:00 AM Talita Rush RN * Drug Screening Score Answer Date of Assessment Author 0 12/01/2021 7:00 AM Talita Rush RN * Question Answer Date of Assessment Author How often do you have a drin k containing alcohol? 0 12/01/2021 7:00 AM Talita Rush RN How many drinks containing alcohol do you have on a typical day when you are drinking? 0 12/01/2021 7:00 AM Talita Rush RN How often do you have six or more drinks on one occasion? 0 12/01/2021 7:00 AM Talita Rush RN AUDIT-C to Determine Rows 4-10 0 12/01/2021 7:00 AM Talita Rush RN * PHQ-9 Total Score Answer Date of Assessment Author 0 12/01/2021 7:21 AM Talita Rush RN * Question Answer Date of Assessment Author Little interest or pleasure in doing things 0 12/01/2021 7:21 AM Talita Rush RN Feeling down, depressed, or hopeless 0 12/01/2021 7:21 AM Talita Rush RN PHQ-2 Total Score 0 12/01/2021 7:21 AM Talita Rush RN * Question Answer Date of Assessment Author Feeling Nervous, Anxious, or on Edge 0 12/01/2021 7:00 AM Talita Rush RN Not Being Able to Stop or Control Worrying 0 12/01/2021 7:00 AM Talita Rush RN Worrying too Much About Different Things 0 12/01/2021 7:00 AM EDT Talita Bradshaw RN Trouble Relaxing 0 12/01/2021 7:00 AM EDT Talita Brown RN Being so Restless That it is Hard to Sit Still 0 12/01/2021 7:00 AM EDT Talita Bradshaw RN Becoming Easily Annoyed or Irritable 0 12/01/2021 7:00 AM EDT Talita Bradshaw RN Feeling Afraid as if Somethi ng Awful Might Happen 0 12/01/2021 7:00 AM EDT Talita Bradshaw RN RAFAELA-7 Total Score 0 12/01/2021 7:00 AM EDT Talita Bradshaw RN documented as of this encounter Mental Status * Cognitive and Functional Status Question Answer Entry Date Author Because of a physical, menta l or emotional condition, does this person have difficulty doing errands alone such as visiting a doctor's office or shopping? No 04/18/2018 7:06 PM EDT Sara Jimenez RN Because of a physical, menta l or emotional condition, does this person have serious difficulty concentrating, remembering or making decisions? No 04/18/2018 7:06 PM EDT Dane Jimenez RN documented in this encounter Plan of Treatment Not on file documented as of this encounter Visit Diagnoses Not on filedocumented in this encounter Care Teams Polisher Sand Relationship Specialty Start Date End Date Kimberli Kwon ARNP [address] [place] [address] [address] [facility] [address] PCP - General Nurse Practitioner-Family 12/20/14 documented as of this encounter
--- OUTSIDE RECORDS SUMMARY | 2024-04-13 05:00 | XMS_ITS ---
Author Organization [facility] Address [address] [place] [address] Care Team Providers Care Carton Maker Name Role Phone Katja Wiley Unavailable [phone] Migration, Provider Unavailable Unavailable Allergies Allergen (clinical drug ingredient) Drug/Non Drug Allergy documented on EMR Reaction Allergy Type Onset Date Status Substance with penicillin structure and antibacterial mechanism of action (substance) Medications: PENICILLINS (uncoded) Unspecified Allergy Active Medications Medication SIG (Take, Route, Fr equency, Duration) Notes Start Date End Date Status Terconazole 1 suppository vaginal QD 12/02/2021 Active Albuterol Sulfate HFA oral Active Wegovy 0.25 mg subcutaneous 1X/W 04/03/2023 Active Social History Tobacco Use: Social History Observation Description Date Smoking Status WARNING: Information temporarily unavailable Social History Drugs/Alcohol: Social Info Question Answer Notes Drugs Have you used drugs other than those for medical reasons in the past 12 months? Never Alcohol Screen Did you have a drink containing alcohol in the past year? Never Household: Social Info Question Answer Notes Household Marital status: Tobacco Use: Social Info Question Answer Notes Tobacco Control (Standard) Tobacco use: Never 0 04/11/2018 - 02/23/2018 - Additional Details Category Social Info Options Details Miscellaneous: Exercise: Minimal Amoun t of Exercise (Once weekly or less) Travel outside of the [place]: Travel History: Uses seat belts Encounters Encounter Location Date Provider Diagnosis [facility] [address] [place] [address] 04/13/2024 Provider Migration Plan Of Treatment No Information Progress Notes * Gregor MUSA: [birth year] (29 yo F)Acc No.[id number]:04/13/2024 Patient: Christy PETERS :1995 A ge:28 Y S ex:Female Address:[address] [place] [id number] Subjective: * Chief Complaints: * Medical History: Asthma Eczema *NO SIGNIFICANT GENETIC HISTORY 7 Spreckels: Self breast exam - No 7 Spreckels: Sexually active - Yes + DHA, oral * Cleaning Professional History: M enstrual History: A ge of Onset: 1 6, LMP: 0 03/27/2023. * OB History: P regnancy History (GPA) T otal Pregnancies 2 , F ull Term 2 , P remature?0, A B. Induced 0 , A B. Spontaneous 0 , E ctopics 0 , M ultiple Births 0 , L iving 2 . G P G ravida: 2 , P rasta: 2 . P regnancy # 1: B irthDate :04/16/2018 BirthLbs :7 BirthOzs :5 Comment : Weight: 7.5 DeliveryType :Vaginal GA :39 PTL :N Sex :M. P regnancy # 2: B irthDate :12/01/2021 DeliveryType :Vaginal GA :39 PTL :N Sex :M. * Surgical History: *No significant surgical past history * Family History: F amily History Verified.. Mother: Hypertension, Benign Essential. * Social History: T obacco Use: T obacco Control (Standard) T obacco use: N ever 04/11/2018 - 02/23/2018 -. D rugs/Alcohol: D rugs H ave you used drugs other than those for medical reasons in the past 12 months??Never. A lcohol Screen D id you have a drink containing alcohol in the past year? N ever. M iscellaneous: E xercise: Minimal Amount of Exercise (Once weekly or less). Travel outside of the [place]: Travel History: Uses seat belts. H ousehold: H ousehold M arital status: . * Medications: T akingAlbuterol Sulfate HFA oral Wegovy 0.25 mg subcutaneous 1X/W Terconazole 1 suppository vaginal QD Taking Albuterol Sulfate HFA oral Taking Wegovy 0.25 mg subcutaneous 1X/W Taking Terconazole 1 suppository vaginal QD * Allergies: M edications: PENICILLINS: Unspecified - AllergyyesAllergies Verified. * * Date:
[2025-05-21 16:20] LABS: Coronavirus 19, PCR Not Detected (NotDetected); Influenza A, PCR Not Detected (NotDetected); Influenza B, PCR Not Detected (NotDetected)
--- OUTSIDE RECORDS SUMMARY | 2025-05-22 16:28 | XMS_ITS | Clinical Summary ---
Author Organization [facility] are Address [address] [place], [place] [address] Phone Care Team Providers Care Dental Ceramist Name Role Phone Kateryna Baxter LPN Unavailable Unavailab le Conditions or Problems No information available. Medications No information available. Medications Administered No information available. Allergies, Adverse Reactions, Alerts No information available. Results No information available. Plan of Care No information available. Procedures No information available. Vital Signs No information available. Immunizations No information available. Advance Directives No information available.
--- OUTSIDE RECORDS SUMMARY | 2025-05-22 16:29 | XMS_ITS | Encounter Summary ---
Author Organization [place] Address [facility] [place] [address] Care Team Providers Care Ed Manager Name Role Phone Kimberli Kwon BRE Primary Care Provider [phone] Encounter Details Date Type Department Care Team (Late st Contact Info) Description 03/26/2018 Lab Requisition [facility] [address] [place] [id number] Hang Barber MD Encounter for supervision of other normal , unspecified trimester Social History Tobacco Use Types Packs/Day Years Used Date Smoking Tobacco: Never Smokeless Tobacco: Never Alcohol Use Standard Drinks/Week Comments Yes 0 (1 standard drink = 0.6 oz pur e alcohol) quit with Sexually Active Control Partners Comments Yes Male not preventing Comments Yes Sex and Gender Information Value Date Recorded Sex Assigned at Not on file Legal Sex Female 3:24 AM EDT Gender Identity Not on file Sexual Orientation Not on file documented as of this encounter Plan of Treatment Not on file documented as of this encounter Procedures Procedure Name Priority Date/Time Associated Diagnosis Comments STREP B DNA Today 03/26/2018 9:52 AM EDT Encounter for supervision of other normal , unspecified trimester documented in this encounter Results * STREP B DNA (03/26/2018 9:52 AM EDT) Strep B DNA Not Detected Not Detected 8 3:26 PM EDT [facility], [facility] Swab RECTUM AND VAGINA, CS / Unknown 03/26/2018 9:52 AM EDT 03/26/2018 7:26 PM EDT Narrative PREFERRED [facility] - 03/28/2018 3:26 PM EDT TEST INFORMATION: This qualitative assay utilizes molecular amplification to detect a portion of the Streptococcus agalactiae genome and is intended for a screen of antepartum women in 35-37 weeks gestation. A negative result does not rule out the presence the Group B Strep in concentrations below the limit of detection for the assay. us Hang Barber MD MICROBIOLOGY - GENERAL ORDER SAMSON Final Result [facility]REFERRED [facility] [address] [facility] , [place] [address] documented in this encounter Visit Diagnoses Diagnosis Encounter for supervision of other normal , unspecified trimester documented in this encounter Care Teams Ed Manager Relationship Specialty Start Date End Date Kimberli Kwon ARNP [address] [place] [address] [address] [place] [address] PCP - General Nurse Practitioner-Family 12/20/14 documented as of this encounter
--- OUTSIDE RECORDS SUMMARY | 2025-05-22 16:29 | XMS_ITS | Patient Health Record ---
[facility] [address] [facility] [address] [place] [id number] Care Team Providers Care Pelletizer Operator Name Role Phone Joshua Gallagher Unavailable [phone] Allergies Allergen (clinical drug ingredient) Drug/Non Drug Allergy documented on EMR Reaction Allergy Type Onset Date Status Penicillin Unknown Drug Allergy Active Medications Medication SIG (Take, Route, Frequency, Duration) Notes Start Date End Date Status Albuterol Sulfate HFA 108 (90 Base) MCG/ACT 2 puff(s) inhaled every 6 hours and prn SOB or wheezing; Duration: 30 day(s) 11/08/2021 Active Eucrisa 2 % 1 maryam applied topically 2 times a day 04/16/2020 Not-Taking Eucrisa 2 % 1 maryam applied topically 2 times a day; Duration: 30 day(s) 07/12/2021 Not-Taking Albuterol Sulfate (2.5 MG/3ML) 0.083% 3 mL inhaled Q6H Active Medrol 4 MG as directed orally daily; Duration: 6 days 03/09/2022 Active Breo Ellipta 200-25 MCG/ACT 1 puff(s) inhaled once a day; Duration: 30 day(s) Active Singulair 10 MG 1 tab(s) orally once a day (in the evening); Duration: 90 days Not-Taking Omeprazole Magnesium 20 MG 1 tab(s) orally once a day; Duration: 30 day(s) 10/04/2018 Not-Taking Cetirizine HCl 10 MG 1 tab(s) orally once a day; Duration: 90 days 08/12/2016 Active Famotidine 20 MG 1 tab(s) orally once a day (at bedtime); Duration: 30 day(s) 07/12/2021 Not-Taking Junel FE 1/20 1-20 MG-MCG 1 tab(s) orally once a day; Duration: 28 days 01/10/2022 Not-Taking ProAir Digihaler 2 INHALATIONS INHALED QID; Duration: 90 DAYS *Please review and pick correct strength-formulati on from [employer] options. If intended option is not shown, discontinue and re-order from Quick Search* 09/16/2020 Not-Taking Immunizations Vaccine Route Administration Date Status Comme nts tuberculin (ppd) ID Intradermal 10/02/2012 Administered Tetanus Tdap-Adacel (over 7yrs) IM Intramuscular 10/18/2016 Administered Tetanus Tdap-Adacel (over 7yrs) Unknown 03/13/2018 Administered Fluzone PF Quad (6-35 months) Unknown 07/26/2019 Administered Problems Problem Type SNOMED Code ICD Code Onset Dates Problem Status W/U Status Risk Notes Problem Asthmatic bronchitis (338911124) Asthmatic Bronchitis (493.10) Active confirmed Low Problem Plantar wart of left foot (941265015951369 02) Plantar wart of left foot (B07.0) Active confirmed Problem Seasonal allergic rhinitis (405595705) Other seasonal allergic rhinitis (J30.2) Active confirmed Problem Asthmatic bronchitis, mild persistent, with acute exacerbation (J45.31) Active confirmed Problem Exacerbation of asthma (659235370) Exacerbation of asthma, unspecified asthma severity, unspecified whether persistent (J45.901) Active confirmed Problem Exacerbation of asthma (166341048) Asthma with acute exacerbation, unspecified asthma severity, unspecified whether persistent (J45.901) Active confirmed Problem Allergic rhinitis (73154060) Allergic rhinitis, unspecified seasonality, unspecified trigger (J30.9) Active confirmed Problem Asthma without status asthmaticus (63001819) Persistent asthma without complication, unspecified asthma severity (J45.909) Active confirmed Plan Of Treatment Pending Test Test Name Order Date H-CBC 03/11/2021 Insurance Providers Payer Name Payer Address Payer Phone Subscriber Number Group Number Insured Name Patient Relationship to Insured Coverage Start Date Coverage End Date [facility] [address] [place] [address] [id number] Christy Musa Self - patient is the insured Medications Administered Medication Instructions Date of Administration Dosage Notes Dexamethasone 03/09/2022 1 mL Medical (General) History Medical History History ICD Code asthma ECZEMA Surgical History Surgery Date(Month/Year)
--- OUTSIDE RECORDS SUMMARY | 2025-05-22 16:29 | XMS_ITS | Patient Health Record ---
Author Organization [facility] Address [address] [place] [address] Care Team Providers Care Bookkeeping Service Sales Agent Name Role Phone Katja Wiley Unavailable [phone] Allergies Allergen (clinical drug ingredient) Drug/Non Drug Allergy documented on EMR Reaction Allergy Type Onset Date Status Substance with penicillin structure and antibacterial mechanism of action (substance) Medications: PENICILLINS (uncoded) Unspecified Allergy Active Reason For Referral No Information Medications Medication SIG (Take, Route, Fr equency, [...] [place]: Travel History: Uses seat belts Plan Of Treatment No Information Medical (General) History Medical History History ICD Code Asthma Eczema *NO SIGNIFICANT GENETIC HISTORY 7 Rhame: Self breast exam - No 7 Rhame: Sexually active - Yes Surgical History Surgery Date(Month/Year) *No significant surgical past history
--- OUTSIDE RECORDS SUMMARY | 2025-05-22 16:30 | XMS_ITS | Clinical Summary ---
Author Organization [facility] Address [address] [place] [address] Phone Care Team Providers Care Crimper Assembler Name Role Phone Teamartín Kimberli DÍAZ Primary Care Provider [phone] Allergies Active Allergy Reactions Criticality Noted Date Comments Penicillins Rash 09/27/2013 Hives also. As a baby 01/20/2022 - 11/23/2021 - 11/19/2021 - 11/12/2021 - 11/05/2021 - 10/20/2021 - 09/17/2021 - 07/16/2021 - 05/21/2021 - 09/21/2020 - 04/11/2018 - 08/30/2017 - Medications albuterol (PROVENTIL HFA;VENTOLIN HFA) 90 mcg/actuation inhaler Inhale 2 Puffs into the lungs every 6 hours as needed for Wheezing. Active dupilumab (DUPIXENT) 300 mg/2 mL SubQ Subcutaneous (Inject under the skin). Active VITAMIN B-12 1,000 mcg Oral Tablet Take 1,000 mcg by mouth daily. Active lisinopriL (PRINIVIL;ZESTR IL) 2.5 mg Oral Tablet Take 2.5 mg by mouth daily. Active montelukast (SINGULAIR) 10 mg Oral Tablet Take 10 mg by mouth daily. 5 Active Cholecalciferol , Vitamin D3, 125 mcg (5,000 unit) Oral Tablet take 1 tablet by mouth once daily. 5 Active cetirizine (ZYRTEC) 10 mg Oral Tablet Take 10 mg by mouth daily. 5 Active Active Problems Problem Noted Date Diagnosed Date Normal labor 12/01/2021 Oligohydramnios in third trimester 04/17/2018 Full-term premature rupture of membranes with onset of labor more than 24 hours following rupture 04/17/2018 -induced hypertension in third trimeste r 04/17/2018 Immunizations Immunization Administration Dates Next Due Tdap 09/10/2021,03/13/2018 Surgical History Surgery Date Site/Laterality Comments NONE No prior surgical history DENTAL SURGERY wisdom teeth out at age 20 Medical History Medical History Date Comments Asthma Hypertension Hx of gestationa l hypertension in 2018 Heartburn GERD Family History Medical History Relation Name Comments No Known Problems Father Cancer Maternal Grandfather High Cholesterol Maternal Grandfather Stroke Maternal Grandfather Diabetes Maternal Grandmother High Blood Pressure Maternal Grandmother High Cholesterol Maternal Grandmother No Known Problems Mother Relation Name Status Comments Father Alive Maternal Grandfather Maternal Grandmother Alive Mother Alive Paternal Grandfather Paternal Grandmother Social History Tobacco Use Types Packs/Day Years Used Date Smoking Tobacco: Never Smokeless Tobacco: Never Tobacco Cessation:Counseling Given: Not Answered Alcohol Use Standard Drinks/Week Comments Yes 0 [...] on file Sexual Orientation Not on file Obstetrics History Para Term AB IAB SAB Ectopic Multiple Livin g Live Births 2 2 1 0 0 0 0 0 0 2 2 Date Outcome GA Total Labor Labor/2nd/3rd Weight Sex Type Anes PTL Anisha A1 A5 Name Clin 2017 Para 0h 03m 0h 03m 7 lb 4.8 oz (3.31 kg) M Vag-S pont Epidur al N Livin g 7 8 HOLBR OMATTHEW,K RISTE N BABY Beaven , Niko Michael, MD Complications:Oligohydramnio s Delivery Location:[facility] ([facility]) 2021 Term 39w 2d 0h 03m 0h 03m 8 lb 11.7 oz (3.96 kg) M Vag-S pont Epidur al N Livin g 7 9 HOLBR OOK,K RISTE N BABY Niko Barber MD Complications:Two vessel cor d,Passage of meconium noted during delivery Delivery Location:[facility] ([facility]) Last Filed Vital Signs Vital Sign Reading Time Taken Comments Blood Pressure 122/80 11/05/2024 1:57 PM EST Pulse 90 11/05/2024 1:57 PM EST Temperature 36.2 C (97.1 F) 12/03/2021 8:34 AM EDT Respiratory Rate 16 12/03/2021 8:34 AM EDT Oxygen Saturation 96% 11/05/2024 1:57 PM EST Inhaled Oxygen Concentration - - Weight 90.3 kg (199 lb) 11/05/2024 1:57 PM EST Height 154.9 cm (5' 1 ) 11/05/2024 1:57 PM EST Body Mass Index 37.6 11/05/2024 1:57 PM EST Plan of Treatment Health Maintenance Due Date Last Done Comments Annual Wellness Exam 1996 Hepatitis B Vaccine (1 of 3 - 19+ 3-dose series) 2012 Pap Smear 06/15/2023 06/15/2020, 08/12, 05/06/2016, Additional history exists Cervical Cancer Screening 2023 HPV/Pap Cotest 2023 COVID-19 Vaccine ( season) 2025 Influenza Vaccine (#1) 2025 07/26/2019 DTaP/TDaP/Td (3 - Td or Tdap) 09/10/2031 09/10/2021, 03/13/2018 Meningococcal B Vaccine Aged Out No l onger eligible based on patient's age to complete this topic Pneumococcal Vaccine 0-49 Aged Out No longer eligible based on patient's age to complete this topic Procedures Procedure Name Priority Date/Time Associated Diagnosis Comments DIRECTOR CORRECTIONAL AGENCY CYTOLOGY REPORT Routine 05/06/2016 3 :17 PM EDT from Last 3 Months or Most Recently Relevant to Health Maintenance Results * DIRECTOR CORRECTIONAL AGENCY CYTOLOGY REPORT (05/06/2016 3:17 PM EDT) Rehabilitation Therapy Technician Cytology Report PATIENT NAME:FRANC ESPINOZA Rehabilitation Therapy Technician Cytology Report Accession Number Collected Date/Time Received Date/Time [id number] 05/06/16 15:17 EDT 05/07/16 10:43 EDT GY Specimen Source Specimen Vag/Cerv/Endocx?: Cerv/Endocerv Statement of Adequacy Satisfactory for Evaluation. Transformation Zone Present. Diagnosis NEGATIVE FOR INTRAEPITHELIAL LESION OR MALIGNANCY. Comment The Pap Smear is a screening test that aids in the detection of cervical cancer and cancer precursors. Both false positive and false negative results can occur. The test should be used at regular intervals, and positive results should be confirmed before definitive therapy. Processed using the [employer] Email Marketing Manager automated cytology screening device (TalkBin). Office Inspector: LAURA SNYDER 05/10/2016 Completed by: Rebecca Franco (Electronically signed by) 05/10/2016 [facility] 05/06/2016 3:17 PM EDT us Neil Bowling MD PATHOLOGY ORDERABLES Final Result [facility] [address] [place] [address] from Last 3 Months or Most Recently Relevant to Health Maintenance Insurance ANTH PPO ANTHEM PPO ANTHEM PPO Advance Directives For more information, please contact: [phone] * Full Code (Latest Code Status on File) Date Activated Date Inactivated Comments 12/01/2021 6:34 AM 12/03/2021 11:37 PM * Full Code Date Activated Date Inactivated Comments 04/16/2018 2:26 PM 04/19/2018 12:03 AM Care Teams Crimper Assembler Relationship Specialty Start Date End Date Kimberli Kwon ARNP [address] [place] [address] PCP - General Nurse Practitioner-Family 12/20/14
== END 2025-05-21 23:59 | disposition home or self-care (01) ==
LOC: LAB.DROPOF 05-22 16:27
PROVIDERS: PCP Nurse Practitioner; Visit Provider Nurse Practitioner
DX: J06.9 Acute upper respiratory infection, unspecified (principal); Z20.822 Contact with and (suspected) exposure to COVID-19
CPT/HCPCS: 87636